=== PATIENT | female | born 1975 | race Caucasian/White ===

== ENCOUNTER → 2017-05-25 | Outpatient (CLI) | payer BC ==
[~2017-05-25] MED LIST: PRENTAB26 PO
--- NOTE | 2017-05-25 13:53 | MAMMOGRAPHY REPORT ---
BILATERAL DIGITAL DIAGNOSTIC MAMMOGRAM TOMOSYNTHESIS WITH CAD AND TARGETED LEFT ULTRASOUND: 05/25/2017 CLINICAL HISTORY: 41-year-old woman presents for baseline mammography and also reports a palpable lum p in the far medial 9:00 left breast along the midsternal line. TECHNIQUE: Bilateral breast tomosynthesis in addition to standard 2D mammography was performed. A re peat 2-D left MLO and left XCCM views were also obtained. Current study was also evaluated with a [employer] Aided Detection (CAD) system. COMPARISON: No prior exams were available for comparison. BREAST COMPOSITION: The tissue of both breasts is heterogeneously dense, which may obscure small mas ses. FINDINGS: A circular mole marker overlies the upper inner quadrant of the left breast. A trained reg ular palpable marker overlies the 8:00 to 9:00 far medial and posterior left breast, denoting the pal pable lump pointed out by the patient. There are 3 round benign-appearing microcalcifications in the right breast. No suspicious grouping or cluster of microcalcifications bilaterally. An 11 mm asymm etry in the lateral posterior left breast on the CC view could represent normal overlapping glandular tissue, however, further evaluation with ultrasound was performed. No focal area of architectural d istortion is seen bilaterally. Targeted ultrasound was performed in the area of palpable lump pointed out by the patient along the m edial sternum/9:00 far medial left breast. On palpation there is a BB sized firm mass. On ultrasoun d, there is an intradermal mass with punctate mixed tending to the dermal surface. It measures 2.9 x 2.5 x 2.8 mm. This is most compatible with an epidermal inclusion cyst. The patient also reported further history of previously being able to elicit white discharge from this mass, also concordant wi th the suspected epidermal inclusion cyst. Additional targeted ultrasound was performed in the lateral left breast. No suspicious solid or cyst ic mass is identified. IMPRESSION: ACR BI-RADS CATEGORY 2: BENIGN, TARGETED ULTRASOUND ACR BI-RADS CATEGORY 2: BENIGN 1. The palpable lump in the far medial left breast near the sternum correlates with a 3 mm epidermal inclusion cyst, which is benign. Continued clinical monitoring is recommended. 2. An asymmetry in the lateral left breast has no suspicious sonographic correlate, and most likely represented normal overlapping fibroglandular tissue. 3. No mammographic evidence of malignancy in the right breast. A 1 year screening mammogram is recommended. The patient tentatively scheduled her follow-up prior t o leaving our department. Approximately 10% of breast cancers are not detected with mammography. A negative mammographic report should not delay biopsy if a clinically suggestive mass is present. Sona Vicente M.D. ay/:05/25/2017 12:37:11 Material Carrier: Edda Lind, [facility] letter sent: Normal 1/2 BI-RADS Code: ACR BI-RADS Category 2: Benign Ultrasound BI-RADS: ACR BI-RADS Category 2: Benign
== END | disposition home or self-care (01) ==
LOC: C.MAMM 10:23
PROVIDERS: ATTEND Obstetrics & Gynecology
DX: N60.02 Solitary cyst of left breast (principal); N64.89 Other specified disorders of breast

== ENCOUNTER → 2017-10-04 | Outpatient (CLI) | payer BC | END | disposition home or self-care (01) | LOC: C.PAPS 11:18 | PROVIDERS: ATTEND Obstetrics & Gynecology | DX: Z01.419 Encounter for gynecological examination (general) (routine) without abnormal findings (principal) ==

== ENCOUNTER → 2018-05-25 | Outpatient (CLI) | payer BC ==
--- NOTE | 2018-05-25 16:07 | MAMMOGRAPHY REPORT ---
BILATERAL DIGITAL SCREENING MAMMOGRAM TOMOSYNTHESIS WITH CAD: 05/25/2018 CLINICAL HISTORY: Routine screening. Patient has no complaints. TECHNIQUE: The study was acquired using full field digital technology and interpreted from soft copy. Breast tomosynthesis in addition to standard 2D mammography was performed. Current study was also ev aluated with a Computer Aided Detection (CAD) system. COMPARISON: Comparison is made to exams dated: 05/25/2017 mammogram and 05/25/2017 ultrasound - [facility]. BREAST COMPOSITION: The tissue of both breasts is heterogeneously dense, which may obscure small mass es. FINDINGS: No suspicious masses, calcifications, or areas of architectural distortion are noted in either breast . There has been no significant interval change compared to prior exams. IMPRESSION: ACR BI-RADS CATEGORY 1: NEGATIVE There is no mammographic evidence of malignancy. A 1 year screening mammogram is recommended.( [id number]) The patient will receive written notification of the results. Some breast cancers are not detected with mammography. A negative mammographic report should not earl y biopsy if a clinically suggestive mass is present. Maryse Jimenez M.D. /:05/25/2018 15:24:35 Api Architect: Edda Lind [facility] letter sent: Normal 1/2 BI-RADS Code: ACR BI-RADS Category 1: Negative
== END | disposition home or self-care (01) ==
LOC: C.MAMM 10:56
PROVIDERS: ATTEND Obstetrics & Gynecology
DX: Z12.31 Encounter for screening mammogram for malignant neoplasm of breast (principal)